=== PATIENT | male | born 1935 | race African-American/Black ===

== ENCOUNTER 2019-08-31 10:22 | Emergency (ER) | payer MEDICARE, SELFPAY ==
[2019-08-31] VITALS (7 sets, daily range): BP systolic 123–163; BP diastolic 65–98; PULSE 78–107; RESP 18–26; TEMP 37.4–37.6; O2SAT 93–97
--- NOTE | ~2019-08-31 | XR_ITS ---
EXAMINATION: XR chest 2V EXAM DATE: 08/31/2019 11:22 INDICATION: Cough and shortness of breath. TECHNIQUE: Frontal and lateral projections of the chest obtained and reviewed. Comparison is made to prior examination from 06/21/2018. FINDINGS: There is aortic arterial sclerosis. The lungs are clear. There are no pleural effusions. The cardiomediastinal silhouette is within normal limits. There is no pneumothorax suspected. The bones and soft tissues are unremarkable. Patient has diffuse idiopathic skeletal hyperostosis (DISH). There is mild hyperinflation. Accounting for differences in technique, there is no significant inte rval change. IMPRESSION: No acute cardiopulmonary findings. Reviewed, dictated and finalized at location B. R COACH DRIVER
--- NOTE | 2019-08-31 10:50 | ED.URI ---
HPI - URI/Sore Throat General Chief Complaint: Upper Respiratory Infection Stated Complaint: I think i have the flu Time Seen by Provider: 08/31/19 10:48 Source: patient and RN notes reviewed Mode of arrival: ambulatory Limitations: no limitations History of Present Illness HPI Narrative: Pt is a 83 y/o male who presents to the ED with c/o cold symptoms starting several days ago. He notes that he has developed a cough, chest soreness, nausea, and one episode of emesis over the past several days. Pt states that his cough became aggravated last night. He currently denies any fever or chills. MD elicited complaint: other (Cold Symptoms) Pertinent past history: pneumonia Onset (ago): day(s) (several) Associated symptoms: cough, nausea, vomiting and other (chest soreness) Related Data Home Medications Medication Instructions Recorded Confirmed albuterol sulfate 1.25 mg/3 mL 1.25 mg INHALATION Q4-6H PRN 06/16/19 solution for nebulization esomeprazole magnesium 40 mg 40 mg PO DAILY 06/16/19 capsule,delayed release gabapentin 300 mg capsule 300 mg PO TID 06/16/19 metoprolol succinate 25 mg 25 mg PO DAILY 06/16/19 tablet,extended release 24 hr Allergies Allergy/AdvReac Type Severity Reaction Status Date / Time No Known Allergies Allergy Verified 08/31/19 11:34 Review of Systems Review of Systems: All systems reviewed & are unremarkable except as noted in HPI and below Constitutional: Constitutional: Denies chills and Denies fever(s) Respiratory: Respiratory: Reports cough and Reports other (chest soreness) Gastrointestinal: Gastrointestinal: Reports nausea and Reports vomiting PMFSH Past Medical History Medical History Arthritis Asthma Back pain CAP (community acquired pneumonia) Cataracts, bilateral COPD (chronic obstructive pulmonary disease) Foot fracture GERD (gastroesophageal reflux disease) Gout History of hypertension Hyponatremia Inguinal hernia Surgical History Surgical History History of inguinal hernia repair History of total hip replacement rt hip Social History Social History Smoking status: Former smoker Tobacco type: cigarettes Second hand tobacco smoke exposure: No Alcohol intake: current Substance use: former Substance use type: marijuana Additional living arrangements comments: Daughter and grandson live at patients house. Comments PCP is Dr. Jacob. Exam Narrative: Exam Narrative: APPEARANCE: No acute distress, nontoxic, resting in bed EYES: EOMI HEENT: Normocephalic, atraumatic, TMs clear bilaterally, bilateral turbinates boggy, mild erythema no exudate posterior pharynx RESPIRATORY: No respiratory distress mild wheezing upper lung collazo, no rhonchi or rales CARDIOVASCULAR: Regular rate and rhythm without murmurs rubs or gallops. ABDOMINAL: Soft, nontender, nondistended, no rebound or guarding MUSCULOSKELETAl: Moves all extremities. No clubbing, cyanosis or edema. NEURO: Awake and alert. Following commands, speech normal, no focal deficits SKIN:: Warm, dry. No rashes lesions or abrasions PSYCHIATRIC: Normal affect/mood, Course Course Emergency Course: Patient given breathing treatment in ED. Following breathing treatments repeat lung exam clear to all station bilaterally Discussed with Dr. Jacob presentation work-up. Agrees with plan for discharge at this time. Request patient start on Z-Alireza Discussed with patient results of workup and diagnosis. Discussed need for follow-up with primary care, proper use of medication, and reasons to return to the emergency department. Patient understands and agrees to current treatment plan Vital Signs Vital signs: Vital Signs Temperature 99.3 F 08/31/19 10:44 Pulse Rate 97 08/31/19 10:44 Respiratory Rate 20 08/31/19 10:44 Blood Pressure 123/65 08/31/19
[2019-08-31] MEDS: ALBUTEROL SULFATE NEB 2.5 MG/0.5 ML INH 5 MG INHALATION ×2 (11:04→11:47)
[2019-08-31] MEDS: IPRATROPIUM BR 0.02% INH SOLN 0.5 MG/2.5 ML VIAL INHALATION ×2 (11:04→11:47)
[2019-08-31] MEDS: predniSONE 20 MG TABLET 60 MG PO (12:05)
== END 2019-08-31 12:21 | disposition home or self-care (01) ==
PROVIDERS: Emergency Provider Emergency Medicine; PCP Family Medicine
DX: J44.9 Chronic obstructive pulmonary disease, unspecified (principal); Z87.891 Personal history of nicotine dependence; M19.90 Unspecified osteoarthritis, unspecified site; J45.909 Unspecified asthma, uncomplicated; H26.9 Unspecified cataract; K21.9 Gastro-esophageal reflux disease without esophagitis; M10.9 Gout, unspecified; I10 Essential (primary) hypertension; Z96.641 Presence of right artificial hip joint
CPT/HCPCS: 71046; 87804; 94640; 99283; J7512

== ENCOUNTER 2020-03-22 19:36 | Emergency (ER) | payer MEDICARE, SELFPAY ==
[2020-03-22 19:31] VITALS: BP 137/70; PULSE 69; RESP 17; TEMP 36.3; O2SAT 95
[2020-03-22 19:37] VITALS: O2SAT 98
[2020-03-22 19:39] VITALS: PULSE 64
--- NOTE | 2020-03-22 19:41 | ED.SEIZURE ---
HPI - Seizure General Chief Complaint: Seizure Stated Complaint: seizure like activity Time Seen by Provider: 03/22/20 19:40 History of Present Illness HPI Narrative: He was eating with family when he became light headed. He remembers telling them that he was not feeling well and he was going home. He then lost consciousness for about 15 seconds. They lowered him to the floor. He denies fall or injury. No chest pain, palpitations. He reports having 2 bratwurst and 2 beers, which he says did not go down well prior to this episode. Related Data Home Medications Medication Instructions Recorded Confirmed esomeprazole magnesium 40 mg 40 mg PO DAILY 06/16/19 capsule,delayed release gabapentin 300 mg capsule 300 mg PO TID 06/16/19 Allergies Allergy/AdvReac Type Severity Reaction Status Date / Time No Known Allergies Allergy Verified 03/22/20 19:46 Review of Systems Review of Systems: All systems reviewed & are unremarkable except as noted in HPI and below Constitutional: Constitutional: Denies chills, Denies fever(s) and Denies weakness Cardiovascular: Cardiovascular: Denies chest pain and Denies rapid heart rate Respiratory: Respiratory: Denies dyspnea Gastrointestinal: Gastrointestinal: Denies abdominal pain, Reports nausea and Denies vomiting Genitourinary: Genitourinary: Denies dysuria Musculoskeletal: Musculoskeletal: Denies back pain Neurologic: Denies dizziness, Reports syncope, Denies headache(s), Denies numbness and Denies weakness PMFSH Past Medical History Medical History Arthritis Asthma Back pain CAP (community acquired pneumonia) Cataracts, bilateral COPD (chronic obstructive pulmonary disease) Foot fracture GERD (gastroesophageal reflux disease) Gout History of hypertension Hyponatremia Inguinal hernia Surgical History Surgical History History of inguinal hernia repair History of total hip replacement rt hip Family History Family History Mother Asthma Other Family history of arthritis Family history of malignant neoplasm of cervix Social History Social History Smoking status: Former smoker Tobacco type: cigarettes Second hand tobacco smoke exposure: No Alcohol intake: current Substance use: former Substance use type: marijuana Additional living arrangements comments: Daughter and grandson live at patients house. Exam Const: General: healthy appearing, no acute distress and alert Orientation/consciousness: patient oriented x3 HENMT: Head: normal to inspection Neck: Neck: normal visual inspection and no lymphadenopathy Chest: Chest palpation & inspection: no tenderness Resp: Effort & Inspection: normal respiratory effort Auscultation: clear to auscultation bilaterally, no rales, no rhonchi and no wheezes Cardio: Jugular venous distension: no JVD Rate: regular rate Rhythm: regular rhythm Heart sounds: no murmurs GI: Inspection: non-distended GI Palp: Yes Soft to palpation and No Tenderness to palpation present (GI) Skin: General skin exam: normal color Neuro: General: patient oriented x3 and moves all extremities Speech: normal speech Extrem: General: no edema Psych: Appearance: well kempt Affect: normal affect Course Vital Signs Vital signs: Vital Signs Temperature 36.3 C L 03/22/20 19:31 Pulse Rate 69 03/22/20 19:31 Respiratory Rate 17 03/22/20 19:31 Blood Pressure 137/70 03/22/20 19:31 Pulse Oximetry 95 03/22/20 19:31 Temperature 36.3 C L 03/22/20 19:31 Pulse Rate 78 03/22/20 22:00 Respiratory Rate 16 03/22/20 22:00 Blood Pressure 154/59 H 03/22/20 22:00 Pulse Oximetry 97 03/22/20 22:00 MDM - Seizure MDM Narrative Medical decision making narrative: Brief
--- NOTE | 2020-03-22 20:00 | ECG_ITS ---
Measurements Intervals [place] Rate: 64 P: 62 OR: 196 QRS: 78 QRSD: 94 T: 83 QT: 425 QTc: 439 Interpretive Statements SINUS RHYTHM ST ELEVATION IN ANTEROLAT/INF LEADS- PROBABLY EARLY REPOLARIZATION BASELINE WANDER- AVR, AVL, AVF, V4-V6 BORDERLINE ECG Electronically Signed On 03-23-2020 10:05:35 CDT by Petar Garcia D.O.
[2020-03-22] MEDS: SODIUM CHLORIDE 0.9% IV 500 ML 999 ML IV CONT (20:04)
[2020-03-22 20:07] VITALS: BP 154/73; PULSE 69; RESP 17; O2SAT 99
[2020-03-22 20:33] LABS: Eosinophils Percent Auto 0.5 % (0-4.4); Hematocrit 34.3 % (42.0-52.0); Hemoglobin 11.4 g/dL (14.0-18.0); Immature Granulocyte Absolute 0.01 K/mm3 (0.00-0.031); Immature Granulocyte Percent A 0.3 % (0-0.5); Lymphocytes Absolute Auto 0.81 K/mm3 (0.9-3.2); Lymphocytes Percent Auto 21.7 % (18.3-44.2); Mean Corpuscular HGB Conc 33.2 g/dl (32-36); Mean Corpuscular Volume 87.3 fl (80-100); Mean Platelet Volume 8.3 fl (7.4-10.4); Monocytes Absolute Auto 0.5 K/mm3 (0.1-0.6); Monocytes Percent Auto 13.7 % (2.6-8.5); Neutrophils Absolute Auto 2.4 K/mm3 (1.3-6.7); Neutrophils Percent Auto 63.8 % (45.5-73.1); Platelet Count Result 172 k/mm3 (150-375); Red Blood Count 3.93 M/mm3 (4.6-6.20); White Blood Count 3.7 K/mm3 (4.5-10.0)
[2020-03-22 20:45] LABS: Alanine Aminotransferase 15 U/L (4-50); Albumin Level 3.7 g/dL (3.5-5.1); Alkaline Phosphatase 64 U/L (38-126); Anion Gap 9 mmol/L (8-16); Aspartate Amino Transferase 24 U/L (17-59); Bilirubin,Total 0.8 mg/dL (0.2-1.3); Blood Urea Nitrogen 19 mg/dL (9-20); Calcium 8.3 mg/dL (8.4-10.2); Carbon Dioxide 28 mmol/L (22-30); Chloride 91 mmol/L (98-107); Estimated CRCL calculation 46 ml/min; Estimated Glomerular Filt Rate > 60; Glucose 131 mg/dL (75-110); Potassium 3.8 mmol/L (3.4-5.0); Sodium 128 mmol/L (137-145)
[2020-03-22 21:00] VITALS: BP 165/64; PULSE 72; RESP 16; O2SAT 97
[2020-03-22 22:00] VITALS: BP 154/59; PULSE 78; RESP 16; O2SAT 97
== END 2020-03-22 22:05 | disposition home or self-care (01) ==
PROVIDERS: Emergency Provider Emergency Medicine; PCP Family Medicine
DX: R55 Syncope and collapse (principal); M19.90 Unspecified osteoarthritis, unspecified site; J44.9 Chronic obstructive pulmonary disease, unspecified; K21.9 Gastro-esophageal reflux disease without esophagitis; M10.9 Gout, unspecified; I10 Essential (primary) hypertension; Z87.891 Personal history of nicotine dependence; Z96.641 Presence of right artificial hip joint; R94.31 Abnormal electrocardiogram [ECG] [EKG]
CPT/HCPCS: 36415; 80053; 85025; 93005; 99283; J7040

== ENCOUNTER 2020-05-13 10:33 | Outpatient (CLI) | payer MEDICARE, SELFPAY ==
--- NOTE | ~2020-05-13 | XR_ITS ---
XR_[id number]_CR 05/13/2020 11:01 Indication: Cervicalgia Procedure: 3 view cervical spine Comparison: No prior studies for comparison. Findings: There is reversal of cervical lordosis. There is disc narrowing and endplate degenerative c hange at all cervical levels. No prevertebral soft tissue swelling. There is multilevel facet and unc inate hypertrophy. Lung apices are normal. No acute fracture or traumatic malalignment. Impression: 1: Severe cervical spondylosis. Reviewed, dictated and finalized at location B. Impression: 1: Severe cervical spondylosis.
== END 2020-05-13 10:34 | disposition home or self-care (01) ==
PROVIDERS: PCP Family Medicine; Visit Provider Physician Assistant
DX: M54.2 Cervicalgia (principal); M47.812 Spondylosis without myelopathy or radiculopathy, cervical region
CPT/HCPCS: 72040

== ENCOUNTER 2021-01-17 18:45 | Emergency (ER) | payer MEDICARE, SELFPAY ==
--- NOTE | ~2021-01-17 | CT_ITS ---
EXAMINATION: CT abdomen pelvis w con EXAM DATE: 01/17/2021 20:33 INDICATION: Abdominal distention bloating, symptoms 3 days. Diarrhea. TECHNIQUE: Spiral CT of the abdomen and pelvis was performed following intravenous injection of 100 m L Omnipaque 350. Axial, coronal and sagittal images of the abdomen and pelvis were reviewed. The do se-length product (DLP) for this examination was 551.53 mGy-cm. The exposure was tailored according to patient size (auto mA exposure control), and iterative reconstruction (ASIR) was used as additiona l dose reduction technique. Comparison is made to prior examination from 07/11/2019. FINDINGS: The gastric body and cardia appears to have diffusely thickened wall. Differential diagnosi s for stomach wall thickening includes gastritis, Danielle Gunter syndrome, Menetrier's disease, an d less likely lymphoma. The liver, spleen, adrenal glands and pancreas are unremarkable. Gallbladder is unremarkable. No bi liary obstruction. Portal and splenic veins are patent. Kidneys enhance symmetrically. There is no hydronephrosis. Lobular renal contours bilaterally with regions of cortical scarring. There is a 2.5 cm left renal cyst. There is moderate prostatomegaly. The bladder is unremarkable, resolution of pr eviously seen cystitis. There is no retroperitoneal or pelvic lymphadenopathy. There is moderate s cattered arteriosclerotic disease. Small left inguinal fat-containing hernia. There are no findings to suggest appendicitis. There is moderately distended colon with gas and fl uid, correlate for diarrhea. No colonic wall thickening. There is mild scattered colonic diverticulos is. There is no adjacent inflammatory change to suggest diverticulitis. No free intraperitoneal gas . The heart is normal in size. There are no pericardial or pleural effusions. Mild to moderate em physema. Basilar linear scarring. There are no osteoblastic or osteolytic lesions identified. Right hip replacement. IMPRESSION: 1. Moderately distended colon with fluid and gas, consider gastroenteritis. 2. Gastric cardia and body wall thickening, could be gastritis, Danielle Gunter syndrome, Menetrie r's disease, or less likely lymphoma. 3. Mild scattered colonic diverticulosis. 4. Moderate prostatomegaly. 5. Small left inguinal hernia. 6. Emphysema. Reviewed, dictated and finalized at location A. IMPRESSION: 1. Moderately distended colon with fluid and gas, consider gastroenteritis. 2. Gastric cardia and body wall thickening, could be gastritis, Danielle Emily son syndrome, Menetrier's disease, or less likely lymphoma. 3. Mild scattered colonic diverticulosis. 4. Moderate prostatomegaly. 5. Small left inguinal hernia. 6. Emphysema.
[2021-01-17 18:55] VITALS: BP 144/64; PULSE 77; RESP 17; TEMP 36.8; O2SAT 99
--- NOTE | 2021-01-17 19:02 | ED.ABDPAIN ---
HPI - Abdominal Pain General Chief Complaint: Abdominal Pain Stated Complaint: Abd bloated Time Seen by Provider: 01/17/21 18:51 Source: patient Mode of arrival: ambulatory Limitations: no limitations History of Present Illness HPI narrative: This is an 85 year old male who presents from home for evaluation of abdominal bloating. He states his bloating has been present for 3 days. He also reports he has not had a normal bowel movement in 3 days. He is only able to pass a small amount of water when he needs to have bowel movement. He denies abdominal pain, nausea, vomiting or fever. He normal has bowel movement every other day. He denies previous history of bowel obstruction and abdominal surgery. Related Data Allergies Allergy/AdvReac Type Severity Reaction Status Date / Time No Known Allergies Allergy Verified 01/17/21 18:57 Review of Systems Review of Systems: All systems reviewed & are unremarkable except as noted in HPI and below PMFSH Past Medical History Medical History Arthritis Asthma Back pain CAP (community acquired pneumonia) Cataracts, bilateral COPD (chronic obstructive pulmonary disease) Foot fracture GERD (gastroesophageal reflux disease) Gout History of hypertension Hyponatremia Inguinal hernia Surgical History Surgical History History of inguinal hernia repair History of total hip replacement rt hip Family History Family History Mother Asthma Other Family history of arthritis Family history of malignant neoplasm of cervix Social History Social History Smoking status: Former smoker Tobacco type: cigarettes Second hand tobacco smoke exposure: No Alcohol intake: current Substance use: former Substance use type: marijuana Additional living arrangements comments: Daughter and grandson live at patients house. Gender identity (if verbalized by the patient): Male Exam Const: General: no acute distress and alert Orientation/consciousness: patient oriented x3 Eyes: EOM: EOMs intact bilaterally Resp: Effort & Inspection: normal respiratory effort and no retractions Auscultation: clear to auscultation bilaterally Cardio: Rate: regular rate Rhythm: regular rhythm Heart sounds: no murmurs GI: Inspection: distended GI Palp: Yes Soft to palpation, No Tenderness to palpation present (GI), No Guarding due to palpation present (GI) and No Rigid due to palpation Auscultation: Hyperactive bowel sounds present Skin: General skin exam: normal color Rashes: no rashes Neuro: General: patient oriented x3, moves all extremities and CN's II-XI intact bilaterally Course Reevaluation(s) Reevaluation #1: I Spoke with patient and family about labs and CT report. He has been made aware of need to follow up with GI. He also has history of hyponatremia and he has been told to restrict his fluid intact. PATient states he drinks 6 pack beer per day. I discuss this is likely one of causing factors of his low sodium . I spoke with Dr. Leyva who is tool design draftsperson . She will follow up with patient in regards to sodium and abnormal ct findings. Date: 01/17/21 Time: 22:06 Vital Signs Vital signs: Vital Signs Temperature 98.3 F 01/17/21 18:55 Pulse Rate 77 01/17/21 18:55 Respiratory Rate 17 01/17/21 18:55 Blood Pressure 144/64 H 01/17/21 18:55 Pulse Oximetry 99 01/17/21 18:55 Temperature 98.3 F 01/17/21 18:55 Pulse Rate 89 01/17/21 23:30 Respiratory Rate 18 01/17/21 23:30 Blood Pressure 159/82 H 01/17/21 23:30 Pulse Oximetry 98 01/17/21 23:30 MDM - Abdominal Pain Medical Records Attestation: I reviewed the patient's medical records. Lab Data Attestation: I reviewed the patient's lab results. Result diagra
[2021-01-17 19:10] LABS: Eosinophils Absolute Auto 0.1 K/mm3 (0-0.3); Eosinophils Percent Auto 1.5 % (0-4.4); Hematocrit 36.5 % (42.0-52.0); Hemoglobin 12.2 g/dL (14.0-18.0); Immature Granulocyte Absolute 0.01 K/mm3 (0.00-0.031); Immature Granulocyte Percent A 0.2 % (0-0.5); Lymphocytes Percent Auto 34.3 % (18.3-44.2); Mean Corpuscular HGB Conc 33.4 g/dl (32-36); Mean Corpuscular Hemoglobin 29.3 pg (26-34); Mean Corpuscular Volume 87.7 fl (80-100); Mean Platelet Volume 8.3 fl (7.4-10.4); Monocytes Absolute Auto 0.6 K/mm3 (0.1-0.6); Monocytes Percent Auto 12.2 % (2.6-8.5); Neutrophils Absolute Auto 2.4 K/mm3 (1.3-6.7); Neutrophils Percent Auto 51.8 % (45.5-73.1); Platelet Count Result 177 k/mm3 (150-375); Red Blood Count 4.16 M/mm3 (4.6-6.20); Red Cell Distribution Width 11.9 % (11.5-14.5); White Blood Count 4.7 K/mm3 (4.5-10.0)
[2021-01-17 19:22] LABS: Alanine Aminotransferase 12 U/L (4-50); Albumin Level 4.4 g/dL (3.5-5.1); Alkaline Phosphatase 73 U/L (38-126); Anion Gap 9 mmol/L (8-16); Aspartate Amino Transferase 29 U/L (17-59); Bilirubin,Total 0.8 mg/dL (0.2-1.3); Blood Urea Nitrogen 17 mg/dL (9-20); Calcium 9.1 mg/dL (8.4-10.2); Carbon Dioxide 23 mmol/L (22-30); Chloride 94 mmol/L (98-107); Estimated Glomerular Filt Rate > 60; Glucose 95 mg/dL (75-110); Lipase 68 U/L (23-300); Potassium 4.2 mmol/L (3.4-5.0); Sodium 126 mmol/L (137-145)
[2021-01-17 19:47] LABS: Add Urine Microscopic? YES; Appearance Urine Clear (Clear); Bilirubin Urine Negative (Negative); Blood Urine Negative (Negative); Color Urine Straw (Yellow); Glucose Urine UA Negative (Negative); Ketones Urine Negative (Negative); Leukocyte Esterase Ur 1+ LEU/UL (Negative); Mucus Urine Rare /lpf; Nitrate Urine Negative (Negative); Protein Urine Negative (Negative); RBC Urine 0-2 /hpf (0-2); Specific Grav Ur 1.006 (1.001-1.035); Squamous Epithelial Cell Urine Rare /hpf (Few); Urobilinogen Urine Negative mg/dL (<2.0)
[2021-01-17 23:30] VITALS: BP 159/82; PULSE 89; RESP 18; O2SAT 98
== END 2021-01-17 23:30 | disposition home or self-care (01) ==
PROVIDERS: Emergency Provider General Practice; PCP Physician Assistant
DX: E87.1 Hypo-osmolality and hyponatremia (principal); R19.7 Diarrhea, unspecified; K31.89 Other diseases of stomach and duodenum; J43.9 Emphysema, unspecified; I10 Essential (primary) hypertension; M10.9 Gout, unspecified; Z87.891 Personal history of nicotine dependence
CPT/HCPCS: 36415; 74177; 80053; 81001; 83690; 85025; 87086; 87088; 99284; J7030; Q9967

== ENCOUNTER 2021-03-29 00:16 | Day surgery (SDC) | payer MEDICARE, SELFPAY ==
[2021-03-16 15:34] VITALS: BMI 22.7
[2021-03-29 07:09] VITALS: BP 131/56; PULSE 74; RESP 20; TEMP 36.3; O2SAT 98; BMI 22.3
[2021-03-29] MEDS: LACTATED RINGERS 1,000 ML 150 ML IV CONT (07:18)
--- NOTE | 2021-03-29 07:27 | WPDANESEPPF ---
Anes - Initial Pre Proc Eval Procedure: Operation Date: 03/29/21 08:00 Proposed Procedures p Esophagogastroduodenoscopy & Screening Colonoscopy - Porter Bell MD Date/Time: 03/29/21 07:27 Surgeon: Porter Bell MD Pre Op Diagnosis: GERD/Abn CT scan, Neoplasm Patient Data Age: 85 Gender: M Height: 1.93 m Weight: 83.2 kg Last Vital Signs Temp 36.3 C L 03/29/21 07:09 Pulse 74 03/29/21 07:09 Resp 20 03/29/21 07:09 BP 131/56 L 03/29/21 07:09 Pulse Ox 98 03/29/21 07:09 Allergies Allergy/AdvReac Type Severity Reaction Status Date / Time No Known Allergies Allergy Verified 03/29/21 07:07 Home Medications Medication Instructions Recorded Confirmed Type tamsulosin 0.4 mg capsule 0.4 mg PO DAILY 90 Days #90 cap 01/29/20 03/16/21 Rx albuterol sulfate 90 mcg/actuation 2 inh INHALATION Q4H PRN #6.7 g 06/14/20 03/16/21 Rx aerosol inhaler fluticasone propionate 50 1 spray INTRANASAL DAILY #16 g 09/15/20 03/16/21 Rx mcg/actuation nasal spray,suspension budesonide-formoterol HFA 160 2 puff INHALATION Q12H #10.2 gm 10/17/20 03/16/21 Rx mcg-4.5 mcg/actuation aerosol inhaler metoprolol succinate 25 mg 25 mg PO DAILY #90 tablet 10/20/20 03/16/21 Rx tablet,extended release 24 hr amlodipine 10 mg tablet 10 mg PO DAILY #90 tablet 11/22/20 03/16/21 Rx pantoprazole 40 mg tablet,delayed 40 mg PO QAM #30 tablet 02/07/21 03/16/21 Rx release pregabalin 50 mg capsule 50 mg PO QHS #30 cap 02/07/21 03/16/21 Rx thiamine HCl (vitamin B1) 100 mg 100 mg PO DAILY #30 tablet 02/07/21 03/16/21 Rx tablet albuterol sulfate 1.25 mg/3 mL 1.25 mg INHALATION Q6-8H PRN #75 ml 02/28/21 03/16/21 Rx solution for nebulization finasteride 5 mg tablet 5 mg PO DAILY 03/02/21 03/16/21 History Patient hx anesthesia problems: none Family hx anesthesia problems: none PMFSH Past Medical History Medical History Alcohol abuse Arthritis Asthma Back pain Bloating CAP (community acquired pneumonia) Cataracts, bilateral Colon cancer screening COPD (chronic obstructive pulmonary disease) Foot fracture GERD (gastroesophageal reflux disease) Gout History of hypertension Hypertension Hyponatremia Inguinal hernia Surgical History Surgical History History of inguinal hernia repair History of total hip replacement rt hip Family History Family History Mother Asthma Other Family history of arthritis Family history of malignant neoplasm of cervix Social History Social History Smoking packs per day: 1 Smoking cigarettes per day: 20.0 Smoking status: Former smoker Tobacco type: cigarettes Second hand tobacco smoke exposure: No Alcohol intake: current Drinks per week: 21 Substance use: former Substance use type: marijuana Last use: YRS AGO Living arrangements: with family Additional living arrangements comments: Daughter and grandson live at patients house. Gender identity (if verbalized by the patient): Male Spiritual care concerns: No Anes - Eval Final PreProcedure Day of Procedure 03/29/21 07:27 Patient weight: normal Heart: regular rate and rhythm Lungs: clear to auscultation Airway: Mallampati scale class II Neurological: alert and oriented Last oral intake: >/= 8 hours ASA classification: III Emergent: no Anesthetic plan: proceed Anesthesia type and monitoring: general GIVS and standard monitoring Informed Consent: The patient's anesthetic plan and its attendant risks and benefits were discussed with the patient/family/POA. Questions were solicited and answers provided to the satisfaction of the patient/family/POA.
--- NOTE | 2021-03-29 07:57 | WPDHPUPDATE1 ---
History and Physical Update Update Date/Time: 03/29/21 07:57 History and Physical has been reviewed, including an updated exam of the patient. There are NO changes in the patient's condition. Risks, benefits, and alternatives have been discussed and questions answered. Patient agrees to proceed with procedure.
--- NOTE | 2021-03-29 08:16 | SUR.OPER ---
egd ended 810- colon began 815
[2021-03-29 08:41] VITALS: BP 112/60; PULSE 64; RESP 16; O2SAT 98
[2021-03-29 08:51] VITALS: BP 136/63; PULSE 65; RESP 16; O2SAT 98
[2021-03-29 09:01] VITALS: BP 138/73; PULSE 64; RESP 16; O2SAT 98
== END 2021-03-29 09:22 | disposition home or self-care (01) ==
PROVIDERS: PCP Family Medicine; Visit Provider Internal Medicine Gastroenterology
PROC: 0DJ08ZZ Inspection of Upper Intestinal Tract, Via Natural or Artificial Opening Endoscopic (ICD-10-PCS; CPT 43235; principal; 2021-03-29 08:00)
DX: Z12.11 Encounter for screening for malignant neoplasm of colon (principal); D12.0 Benign neoplasm of cecum; K57.30 Diverticulosis of large intestine without perforation or abscess without bleeding; K64.8 Other hemorrhoids; R14.0 Abdominal distension (gaseous); K21.9 Gastro-esophageal reflux disease without esophagitis; K44.9 Diaphragmatic hernia without obstruction or gangrene; J44.9 Chronic obstructive pulmonary disease, unspecified; M10.9 Gout, unspecified; I10 Essential (primary) hypertension; Z87.891 Personal history of nicotine dependence; Z79.51 Long term (current) use of inhaled steroids
CPT/HCPCS: 45385; 45381; 43239; 88305; J2704; J7120

== ENCOUNTER 2021-05-05 08:33 | Outpatient (CLI) | payer MEDICARE, SELFPAY ==
--- NOTE | ~2021-05-05 | XR_ITS ---
XR chest 2V DATE: 05/05/2021 09:00 INDICATION: Chronic obstructive pulmonary disease TECHNIQUE: PA and lateral views COMPARISON: 08/31/2019 2 view chest FINDINGS: Normal heart size. Aortic arch calcification. No hilar or mediastinal enlargement. Moderate bilateral hyperinflation, consistent with clinical history of COPD. Mild atelectasis is sugg ested at the lung bases. Diffuse osteopenia. IMPRESSION: COPD Mild atelectasis at the lung bases Aortic calcification Diffuse osteopenia Reviewed, dictated and finalized at location A.
== END 2021-05-05 08:34 | disposition home or self-care (01) ==
LOC: ANHIMG 08:44
PROVIDERS: PCP Family Medicine; Visit Provider Family Medicine
DX: J44.1 Chronic obstructive pulmonary disease with (acute) exacerbation (principal); J98.11 Atelectasis; I70.0 Atherosclerosis of aorta; M85.88 Other specified disorders of bone density and structure, other site
CPT/HCPCS: 71046

== ENCOUNTER 2021-09-18 10:04 | Outpatient (CLI) | payer MEDICARE, SELFPAY ==
[2021-09-18 10:30] VITALS: PULSE 78; O2SAT 92
[2021-09-18 10:32] VITALS: PULSE 70; O2SAT 87
[2021-09-18 10:34] VITALS: PULSE 74; O2SAT 89
[2021-09-18 10:36] VITALS: PULSE 75; O2SAT 94
--- NOTE | 2021-09-18 11:48 | HOMEO2EVAL ---
Evaluation was performed at [facility] Home Oxygen Evaluation RC: Home Oxygen (O2) Evaluation Start: 09/18/21 11:46 Freq: Status: Active Protocol: RPE Activity Type Activity Date Activity User E-Sign Co-Sign Detail Recorded Client Recorded Date Recorded By Document 09/18/21 10:30 KRM [id number] 09/18/21 11:48 KRM Document 09/18/21 10:32 KRM [id number] 09/18/21 11:48 KRM Document 09/18/21 10:34 KRM [id number] 09/18/21 11:48 KRM Document 09/18/21 10:36 KRM [id number] 09/18/21 11:48 KRM 09/18/21 09/18/21 09/18/21 10:30 10:32 10:34 Home O2 Evaluation Test Phase Resting Exercise Exercise Oxygen Delivery Room Air Room Air Nasal Cannula Oxygen Flow Rate (L/min) 1 Pulse Oximetry (90-100 %) 92 87 L 89 L Pulse Rate (60-100 beats/min) 78 70 74 Activity Tolerance Good Good Ambulation Distance (feet) Ambulation Distance (meters) Home Oxygen Evaluation Comments Treatment Charges 09/18/21 10:36 Home O2 Evaluation Test Phase Exercise Oxygen Delivery Nasal Cannula Oxygen Flow Rate (L/min) 2 Pulse Oximetry (90-100 %) 94 Pulse Rate (60-100 beats/min) 75 Activity Tolerance Good Ambulation Distance (feet) 500 Ambulation Distance (meters) 152.39 Home Oxygen Evaluation Comments 2LPM WITH ACTIVITY. PT. IS REQUESTING POC ON SETUP. Treatment Charges O2 Evaluation - Outpatient
--- NOTE | 2021-09-18 13:20 | WPDPFTINT ---
PFT Procedure Performed PFT Procedure Performed Spirometry with Pre/Post Bronchodilator Plethysmography (Lung Vol) Diffusing Cap (DLCO) Flow Vol Loop PFT Interpretation Lung volumes were measured with the body plethysmography method. Lung volumes are unremarkable. Spirometry showed diminished expiratory flow rates and a diminished FEV1 to FVC ratio 53%, indicative of obstructive airway disease. Following administration of a bronchodilator there was no significant increase in expiratory flow rates. Lung diffusion capacity is moderately reduced at 62% predicted. The flow volume loop is consistent with obstructive airway disease. Impression: Moderate obstructive airway disease with no response to bronchodilators on this testing. Moderately reduced lung diffusion capacity.
== END 2021-09-18 10:05 | disposition home or self-care (01) ==
LOC: ANHPFT 10:06
PROVIDERS: PCP Family Medicine; Visit Provider Internal Medicine Pulmonary Disease
DX: J44.9 Chronic obstructive pulmonary disease, unspecified (principal)
CPT/HCPCS: 94060; 94618; 94726; 94729

== ENCOUNTER → 2021-10-18 02:51 | Outpatient (CLI) | payer MEDICARE, SELFPAY ==
[2021-10-18 12:58] LABS: Influenza A QL RT-PCR Negative (Negative); Influenza B QL RT-PCR Negative (Negative); SARS-CoV-2 RNA PCR Negative
== END ==
PROVIDERS: PCP Family Medicine; Visit Provider Family Medicine
DX: R05.9 Cough, unspecified (principal); R09.89 Other specified symptoms and signs involving the circulatory and respiratory systems; Z20.822 Contact with and (suspected) exposure to COVID-19
CPT/HCPCS: 87502; C9803; U0003; U0005

== ENCOUNTER 2022-02-12 13:02 | Outpatient (RCR) | payer MEDICARE, SELFPAY ==
[2022-02-12] MEDS: FAMOTIDINE 20 MG TABLET PO (13:38)
[2022-02-12] MEDS: diphenhydrAMINE HCl CAP 25 MG CAPSULE PO (13:38)
[2022-02-12 13:44] VITALS: BP 125/76; PULSE 70; TEMP 36; O2SAT 99
[2022-02-12] MEDS: BEBTELOVIMAB 175 MG/2 ML VIAL IV PUSH (13:57)
[2022-02-12 14:37] VITALS: BP 164/70; PULSE 59; O2SAT 100
== END 2022-02-12 16:00 ==
LOC: AMCINF 13:02
PROVIDERS: PCP Family Medicine; Referring Provider Family Medicine; Visit Provider Internal Medicine Hematology & Oncology
DX: U07.1 COVID-19 (principal); J44.9 Chronic obstructive pulmonary disease, unspecified
CPT/HCPCS: A9270; M0222; Q0222

== ENCOUNTER 2023-03-21 11:03 | Outpatient (CLI) | payer MEDICARE, SELFPAY ==
[2023-03-21 12:40] LABS: Influenza A QL RT-PCR Negative (Negative); Influenza B QL RT-PCR Negative (Negative); RSV RNA, RT-PCR Negative (Negative); SARS-CoV-2 RNA PCR Positive (Negative)
== END 2023-03-21 11:04 | disposition home or self-care (01) ==
LOC: ANHLAB 11:04
PROVIDERS: PCP Family Medicine; Visit Provider Physician Assistant
DX: U07.1 COVID-19 (principal)
CPT/HCPCS: 87637

== ENCOUNTER 2023-04-19 10:30 | Outpatient (CLI) | payer MEDICARE, SELFPAY ==
--- NOTE | ~2023-04-19 | XR_ITS ---
XR chest 2V 04/19/2023 10:58 Indication: Dyspnea. Recent Covid. Procedure: 2 view chest Comparison: Comparison to multiple prior studies sequentially, with oldest reviewed study dated 11/29. Findings: Heart size is normal. No focal air space disease, pulmonary edema, pleural effusion or susp ected pneumothorax. Impression: 1: No acute cardiopulmonary disease. Reviewed, dictated and finalized at location B. Impression: 1: No acute cardiopulmonary disease.
--- NOTE | ~2023-04-19 | XR_ITS ---
XR_CERV2-3V_CR 04/19/2023 10:58 Indication: Neck pain Procedure: 3 views cervical spine Comparison: 05/13/2020 Findings: C7 and T1 are not well visualized on lateral view. There is reversal of cervical lordosis. There are severe degenerative disc disease at all visualized cervical spine levels. There is multilev el facet and uncinate hypertrophy. Lung apices are normal. Odontoid process is unremarkable. No preve rtebral soft tissue swelling. Impression: 1: Severe cervical spondylosis. Limited study. Reviewed, dictated and finalized at location B. Impression: 1: Severe cervical spondylosis. Limited study.
== END 2023-04-19 10:31 | disposition home or self-care (01) ==
PROVIDERS: PCP Family Medicine; Visit Provider Physician Assistant Medical
DX: M54.2 Cervicalgia (principal); M43.02 Spondylolysis, cervical region; R06.00 Dyspnea, unspecified
CPT/HCPCS: 71046; 72040

== ENCOUNTER 2023-07-08 10:56 | Outpatient (CLI) | payer MEDICARE, SELFPAY ==
[2023-07-08 12:15] LABS: Influenza A QL RT-PCR Negative (Negative); Influenza B QL RT-PCR Negative (Negative); RSV RNA, RT-PCR Negative (Negative); SARS-CoV-2 RNA PCR Positive (Negative)
== END 2023-07-08 10:57 | disposition home or self-care (01) ==
LOC: ANHLAB 10:59
PROVIDERS: PCP Family Medicine; Visit Provider Physician Assistant
DX: J43.1 Panlobular emphysema (principal); Z20.822 Contact with and (suspected) exposure to COVID-19
CPT/HCPCS: 87637

== ENCOUNTER 2023-08-07 12:29 | Outpatient (CLI) | payer MEDICARE, SELFPAY ==
[2023-08-07 12:30] VITALS: PULSE 81; O2SAT 95
[2023-08-07 12:35] VITALS: PULSE 83; O2SAT 87
[2023-08-07 12:40] VITALS: PULSE 82; O2SAT 87
[2023-08-07 12:45] VITALS: PULSE 81; O2SAT 92
[2023-08-07 12:55] VITALS: PULSE 82; O2SAT 94
--- NOTE | 2023-08-07 13:01 | HOMEO2EVAL ---
Evaluation was performed at [facility] Home Oxygen Evaluation RC: Home Oxygen (O2) Evaluation Start: 08/07/23 12:57 Freq: Status: Active Protocol: RPE Activity Type Activity Date Activity User E-sign Co-sign Detail Recorded Client Recorded Date Recorded By Document 08/07/23 12:30 PK [email or web address] 08/07/23 13:01 PKH Document 08/07/23 12:35 PK [email or web address] 08/07/23 13:01 PKH Document 08/07/23 12:40 PK [email or web address] 08/07/23 13:01 PK Document 08/07/23 12:45 [facility] [email or web address] 08/07/23 13:01 [facility] Document 08/07/23 12:55 [facility] [email or web address] 08/07/23 13:01 [facility] 08/07/23 08/07/23 08/07/23 12:30 12:35 12:40 Home O2 Evaluation [Oxygen] -Test Phase Resting Exercise Exercise -Oxygen Delivery Room Air Room Air Nasal Cannula -Oxygen Flow Rate (L/min) 1 [Pulse Oximetry] -Pulse Oximetry (90-100 %) 95 87 L 87 L [Pulse Rate] -Pulse Rate (60-100 beats/min) 81 83 82 [Charges] -Evaluation Charges O2 Evaluation by Pulmonary 08/07/23 08/07/23 12:45 12:55 Home O2 Evaluation [Oxygen] -Test Phase Exercise Resting -Oxygen Delivery Nasal Cannula Room Air -Oxygen Flow Rate (L/min) 2 [Pulse Oximetry] -Pulse Oximetry (90-100 %) 92 94 [Pulse Rate] -Pulse Rate (60-100 beats/min) 81 82 [Charges] -Evaluation Charges
== END 2023-08-07 12:30 | disposition home or self-care (01) ==
LOC: ANHPFT 12:32
PROVIDERS: PCP Family Medicine; Visit Provider Physician Assistant
DX: J96.10 Chronic respiratory failure, unspecified whether with hypoxia or hypercapnia (principal); J44.9 Chronic obstructive pulmonary disease, unspecified
CPT/HCPCS: 94618

== ENCOUNTER 2023-08-28 14:22 | Outpatient (CLI) | payer MEDICARE, SELFPAY ==
--- NOTE | ~2023-08-28 | XR_ITS ---
EXAMINATION: XR hip BI 2V w AP pelvis DATE: 08/28/2023 14:52 INDICATION: Pain in unspecified hip. TECHNIQUE: An anteroposterior view of the pelvis and 2 views of each hip were obtained. COMPARISON: Right hip radiographs 04/01/2019 FINDINGS: There is a total right hip arthroplasty in near-anatomic alignment. There is a cable around the proximal right femur. No fracture. No periprosthetic lucency to suggest loosening or infection. There is heterotopic ossification around right hip. 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 There is severe lumbar spondylosis. IMPRESSION: 1. Total right hip arthroplasty in near-anatomic alignment. 2. Moderate left hip osteoarthritis. Reviewed, dictated and finalized at location E. [employer]
== END 2023-08-28 14:23 ==
PROVIDERS: PCP Physician Assistant; Visit Provider Physician Assistant
DX: M16.12 Unilateral primary osteoarthritis, left hip (principal); Z96.641 Presence of right artificial hip joint
CPT/HCPCS: 73521

== ENCOUNTER 2023-09-09 12:18 | Emergency (ER) | payer MEDICARE, SELFPAY ==
--- NOTE | ~2023-09-09 | XR_ITS ---
Clinical Indication: Cough PA and lateral views of the chest: Comparison: 04/19/2023 Findings: The lungs are clear, without evidence of focal consolidation or pleural effusion. Cardiome diastinal silhouette is within normal limits. Bones and soft tissues are unremarkable. Impression: Clear lungs. Reviewed, dictated and finalized at location . [employer] Impression: Clear lungs.
[2023-09-09 12:30] VITALS: BP 152/56; PULSE 84; RESP 20; TEMP 36.7; O2SAT 94
[2023-09-09 13:20] LABS: Influenza A QL RT-PCR Negative (Negative); Influenza B QL RT-PCR Negative (Negative); RSV RNA, RT-PCR Positive (Negative); SARS-CoV-2 RNA PCR Negative (Negative)
--- NOTE | 2023-09-09 14:24 | ED.GENADULT ---
HPI - General Adult General Chief complaint: Upper Respiratory Infection <Minerva Cespedes November,N - Last Filed: 09/09/23 14:29> Stated complaint: cough <Minerva Cespedes November, - Last Filed: 09/09/23 14:29> Time Seen by Provider: 09/09/23 14:35 <Minerva Cespedes November,N - Last Filed: 09/09/23 14:29> History of Present Illness HPI narrative: Focused HPI: 1423 GENERAL: Well-appearing, well-nourished, and in no acute distress. HEAD: Normocephalic, atraumatic. CHEST: Clear to auscultation. ?No respiratory distress. HEART: Regular rate and rhythm.? NEURO: ?Alert and oriented x3. Patient screened in triage and initial orders placed.? ?Additional care and disposition to be based upon?diagnostic testing and treatment. Impressions Chest X-Ray 09/09/23 13:04 Impression: Clear lungs. <Minerva Cespedes November, - Last Filed: 09/09/23 14:29> Related Data Home medications: Home Medications Medication Instructions Recorded Confirmed finasteride 5 mg tablet 5 mg PO DAILY 03/02/21 08/28/23 <Minerva Cespedes November,N - Last Filed: 09/09/23 14:29> Allergies/adverse reactions: Allergies Allergy/AdvReac Type Severity Reaction Status Date / Time No Known Allergies Allergy Verified 09/09/23 12:19 <Minerva Cespedes November, - Last Filed: 09/09/23 14:29> Review of Systems Constitutional: Constitutional: Denies chills, Reports fatigue and Denies fever(s) <Eladio Carrizales MD - Last Filed: 09/09/23 15:09> Cardiovascular: Cardiovascular: Denies chest pain, Denies rapid heart rate and Denies radiating jaw, neck or arm pain <Eladio Carrizales MD - Last Filed: 09/09/23 15:09> Respiratory: Respiratory: Reports cough, Denies dyspnea and Denies wheezing <Eladio Carrizales MD - Last Filed: 09/09/23 15:09> PMFSH Past Medical History Medical History: Medical History Alcohol abuse Arthritis Asthma Back pain Bloating CAP (community acquired pneumonia) Cataracts, bilateral Colon cancer screening COPD (chronic obstructive pulmonary disease) Foot fracture GERD (gastroesophageal reflux disease) Gout History of hypertension Hypertension Hyponatremia Inguinal hernia Pain in both knees <Minerva Cespedes November, Last Filed: 09/09/23 14:29> Surgical History Surgical History: Surgical History History of inguinal hernia repair History of total hip replacement rt hip <Minerva Cespedes November, - Last Filed: 09/09/23 14:29> Family History Family History: Family History Mother Asthma Other Family history of arthritis Family history of malignant neoplasm of cervix <Minerva Cespedes November, Last Filed: 09/09/23 14:29> Social History Social History: Social History Smoking packs per day: 1 Smoking cigarettes per day: 20.0 Years smoked: 30 Smoking pack-years: 30.00 Smoking status: Former smoker Tobacco type: cigarettes Second hand tobacco smoke exposure: No Smoking end date: 12/31/97 Alcohol intake: current Drinks per week: 21 Substance use: former Substance use type: marijuana Last use: YRS AGO Living arrangements: with family Additional living arrangements comments: Daughter and grandson live at patients house. Gender identity (if verbalized by the patient): Male Spiritual care concerns: No <Minerva Cespedes November, Last Filed: 09/09/23 14:29> Exam Narrative: GENERAL: Well-appearing, well-nourished, and in no acute distress. HEAD: Normocephalic, atraumatic. ENT: Mucous membranes moist. CHEST: faint basilar rhonchi. No respiratory distress. HEART: Regular rate and rhythm. Normal peripheral pulses. EXTREMITIES: Normal range of motion. No edema. SKIN: Warm, dry, no rash. NEURO: Alert and oriented x3. PSYCH: Normal mood and affect. Mitzi Reed
[2023-09-09 15:32] VITALS: BP 142/85; PULSE 85; RESP 20; TEMP 36.8; O2SAT 93
== END 2023-09-09 15:33 | disposition home or self-care (01) ==
PROVIDERS: Emergency Provider Emergency Medicine; PCP Physician Assistant
DX: J20.5 Acute bronchitis due to respiratory syncytial virus (principal); Z20.822 Contact with and (suspected) exposure to COVID-19; I10 Essential (primary) hypertension; J44.9 Chronic obstructive pulmonary disease, unspecified; K21.9 Gastro-esophageal reflux disease without esophagitis; M19.90 Unspecified osteoarthritis, unspecified site; M10.9 Gout, unspecified; Z96.641 Presence of right artificial hip joint; Z87.891 Personal history of nicotine dependence
CPT/HCPCS: 71046; 87637; 99283

== ENCOUNTER 2023-09-23 11:53 | Outpatient (CLI) | payer MEDICARE, SELFPAY ==
--- NOTE | ~2023-09-23 | XR_ITS ---
EXAMINATION: XR abdomen obstructive series DATE: 09/23/2023 12:18 INDICATION: Gaseous abdominal distention TECHNIQUE: Upright and supine views of the abdomen were obtained. COMPARISON: None. FINDINGS: There are no dilated loops of bowel. No free intraperitoneal gas is identified. The visuali zed lung bases are clear. There are changes of right total hip arthroplasty. There is moderate osteoa rthritis of the left hip. IMPRESSION: 1. Nonobstructive bowel gas pattern. Reviewed, dictated and finalized at location B. HOOKER
== END 2023-09-23 11:54 | disposition home or self-care (01) ==
PROVIDERS: PCP Family Medicine; Visit Provider Physician Assistant
DX: R14.0 Abdominal distension (gaseous) (principal)
CPT/HCPCS: 74019

== ENCOUNTER 2023-10-22 15:12 | Emergency (ER) | payer MEDICARE, SELFPAY ==
[2023-10-22] VITALS (22 sets, daily range): BP systolic 139–165; BP diastolic 59–73; PULSE 61–85; RESP 15–23; TEMP 36.6–36.7; O2SAT 96–100
--- NOTE | ~2023-10-22 | XR_ITS ---
XR chest 2V DATE: 10/22/2023 15:46 INDICATION: Pain TECHNIQUE: PA and lateral views COMPARISON: 04/19/2023 2 view chest FINDINGS: Normal heart size. Aortic calcification. No hilar or mediastinal enlargement. No pulmonary infiltrate or consolidation, pleural effusion or pulmonary vascular congestion or pneumo thorax is detected. IMPRESSION: No active cardiopulmonary disease Reviewed, dictated and finalized at location B.
[2023-10-22 16:06] LABS: Influenza A QL RT-PCR Negative (Negative); Influenza B QL RT-PCR Negative (Negative); RSV RNA, RT-PCR Negative (Negative); SARS-CoV-2 RNA PCR Negative (Negative)
--- NOTE | 2023-10-22 16:12 | ECG_ITS ---
Measurements Intervals [place] Rate: 63 P: 48 PA: 187 QRS: 68 QRSD: 82 T: 69 QT: 397 QTc: 409 Interpretive Statements SINUS RHYTHM VOLTAGE CRITERIA FOR LVH [MEETS CRITERIA IN ONE OF: R(aVL), S(V1), R(V5), R(V5/V6)+S(V1)] COMPARED TO ECG 03/22/2020 19:39:01 LEFT VENTRICULAR HYPERTROPHY NOW PRESENT Electronically Signed On 10-23-2023 12:19:26 CDT by Leonel Simmons M.D.
[2023-10-22 16:36] LABS: Basophils Percent Auto 0.4 % (0.2-1.2); Eosinophils Absolute Auto 0.1 K/mm3 (0-0.3); Eosinophils Percent Auto 1.4 % (0-4.4); Hematocrit 37.7 % (42.0-52.0); Hemoglobin 11.9 g/dL (14.0-18.0); Immature Granulocyte Absolute 0.02 K/mm3 (0.00-0.031); Immature Granulocyte Percent A 0.4 % (0-0.5); Lymphocytes Absolute Auto 1.66 K/mm3 (0.9-3.2); Lymphocytes Percent Auto 33.9 % (18.3-44.2); Mean Corpuscular HGB Conc 31.6 g/dl (32-36); Mean Corpuscular Hemoglobin 27.6 pg (26-34); Mean Corpuscular Volume 87.5 fl (80-100); Mean Platelet Volume 8.9 fl (7.4-10.4); Monocytes Absolute Auto 0.6 K/mm3 (0.1-0.6); Monocytes Percent Auto 12.9 % (2.6-8.5); Neutrophils Absolute Auto 2.5 K/mm3 (1.3-6.7); Platelet Count Result 203 k/mm3 (150-375); Red Blood Count 4.31 M/mm3 (4.6-6.20); Red Cell Distribution Width 13.2 % (11.5-14.5); White Blood Count 4.9 K/mm3 (4.5-10.0)
[2023-10-22 17:15] LABS: Alanine Aminotransferase 12 U/L (6-50); Albumin Level 3.8 g/dL (3.5-5.1); Alkaline Phosphatase 78 U/L (38-126); Anion Gap 4 mmol/L (4-12); Aspartate Amino Transferase 25 U/L (17-59); Bilirubin,Total 0.5 mg/dL (0.2-1.3); Blood Urea Nitrogen 17 mg/dL (9-20); Calcium 8.8 mg/dL (8.4-10.2); Carbon Dioxide 29 mmol/L (22-30); Chloride 99 mmol/L (98-107); Estimated CRCL calculation 44 ml/min; Estimated Glomerular Filt Rate > 60; Glucose 108 mg/dL (65-110); Potassium 4.4 mmol/L (3.4-5.0); Sodium 132 mmol/L (137-145)
--- NOTE | 2023-10-22 17:44 | ED.SOB ---
HPI - SOB/Dyspnea General Chief Complaint: Shortness of Breath/Dyspnea Stated Complaint: shortness of breath, COPD Time Seen by Provider: 10/22/23 17:10 Source: patient and family Mode of arrival: ambulatory Limitations: no limitations History of Present Illness HPI Narrative: This is a 87 year old male that presents to the ER for shortness of breath. Ongoing over the last 2 days. Reports tightness in his chest as well as wheezing. Reports some pain below his ribs. He has history of COPD and wears 2L NC chronically. Denies fever, cough or lower extremity edema. Related Data Home Medications Medication Instructions Recorded Confirmed finasteride 5 mg tablet 5 mg PO DAILY 03/02/21 09/18/23 Allergies Allergy/AdvReac Type Severity Reaction Status Date / Time No Known Allergies Allergy Verified 09/18/23 15:18 Review of Systems Review of Systems: CONSTITUTIONAL: Denies fever CARDIOVASCULAR: Denies chest pain, or edema. RESPIRATORY: Reports dyspnea. Denies cough All systems reviewed & are unremarkable except as noted in HPI and below PMFSH Past Medical History Medical History Alcohol abuse Arthritis Asthma Back pain Bloating CAP (community acquired pneumonia) Cataracts, bilateral Colon cancer screening COPD (chronic obstructive pulmonary disease) Foot fracture GERD (gastroesophageal reflux disease) Gout History of hypertension Hypertension Hyponatremia Inguinal hernia Pain in both knees Surgical History Surgical History History of inguinal hernia repair History of total hip replacement rt hip Family History Family History Mother Asthma Other Family history of arthritis Family history of malignant neoplasm of cervix Social History Social History Smoking packs per day: 1 Smoking cigarettes per day: 20.0 Years smoked: 30 Smoking pack-years: 30.00 Smoking status: Former smoker Tobacco type: cigarettes Second hand tobacco smoke exposure: No Smoking end date: 12/31/97 Alcohol intake: current Drinks per week: 21 Substance use: former Substance use type: marijuana Last use: YRS AGO Living arrangements: with family Additional living arrangements comments: Daughter and grandson live at patients house. Gender identity (if verbalized by the patient): Male Spiritual care concerns: No Exam Narrative: GENERAL: Elderly, well-nourished, and in no acute distress. HEAD: Normocephalic, atraumatic. EYES: EOMI. ENT: Nares clear, no rhinorrhea or epistaxis. Mucous membranes moist. Oropharynx without tonsillar hypertrophy exudate or other lesions. NECK: Supple. No adenopathy or masses. No JVD CHEST: No respiratory distress. Lung sounds diminished with expiratory wheezing. No rales or rhonchi HEART: Regular rate and rhythm. No murmur heard. Normal peripheral pulses. EXTREMITIES: Normal range of motion. No edema. SKIN: Warm, dry, no rash. NEURO: No focal deficits. Alert and oriented x3. PSYCH: Normal mood and affect Course Course Emergency Course: Patient with improvement with nebulizer treatment and steroids Vital Signs Vital signs: Vital Signs Temperature 98.0 F 10/22/23 15:18 Pulse Rate 85 10/22/23 15:18 Respiratory Rate 20 10/22/23 15:18 Blood Pressure 139/59 L 10/22/23 15:18 Pulse Oximetry 98 10/22/23 15:18 Oxygen Delivery Room Air 10/22/23 15:18 Temperature 98.0 F 10/22/23 15:18 Pulse Rate 76 10/22/23 18:17 Respiratory Rate 19 10/22/23 18:17 Blood Pressure 139/59 L 10/22/23 15:18 Pulse Oximetry 100 10/22/23 15:56 Oxygen Delivery Nasal Cannula 10/22/23 15:56 Oxygen Flow Rate 2 10/22/23 15:56 MDM - SOB/Dyspnea MDM Narrative Medical decision sukhi
[2023-10-22] MEDS: methylPREDNISolone SOD SUCC 125 MG VIAL IV PUSH (18:00)
[2023-10-22] MEDS: IPRATROPIUM 0.5 MG/ALBUTEROL SULFATE 2.5 MG AMPUL.NEB 3 ML INHALATION ×2 (18:08→19:11)
[2023-10-22 18:16] LABS: Troponin I < 0.012 ng/mL (0.000-0.034)
[2023-10-22 18:26] LABS: D Dimer 0.49 ug/mL (<0.48)
== END 2023-10-22 19:46 | disposition home or self-care (01) ==
PROVIDERS: Emergency Medicine; Emergency Provider Physician Assistant; PCP Family Medicine
DX: J44.1 Chronic obstructive pulmonary disease with (acute) exacerbation (principal); Z20.822 Contact with and (suspected) exposure to COVID-19; J96.10 Chronic respiratory failure, unspecified whether with hypoxia or hypercapnia; I10 Essential (primary) hypertension; K21.9 Gastro-esophageal reflux disease without esophagitis; M10.9 Gout, unspecified; M19.90 Unspecified osteoarthritis, unspecified site; Z96.641 Presence of right artificial hip joint; Z87.01 Personal history of pneumonia (recurrent); Z87.891 Personal history of nicotine dependence
CPT/HCPCS: 36415; 71046; 80053; 84484; 85025; 85380; 87637; 93005; 94640; 96374; 99284; J2919

== ENCOUNTER 2024-01-09 11:52 | Outpatient (CLI) | payer MEDICARE, SELFPAY ==
--- NOTE | ~2024-01-09 | XR_ITS ---
XR knee LT min 4V Ordering provider: Batool Hernandez MD History: . OSTEOARTHRITIS OF KNEES, JUDY . Comparison: September 11, 2013 FINDINGS: BONES: No acute fracture or dislocation. JOINT SPACES: Narrowing of the medial compartment. SOFT TISSUES: Vascular calcification. IMPRESSION: No acute osseous abnormality left knee. Severe osteoarthritic changes. Reviewed, dictated and finalized at location A.
--- NOTE | ~2024-01-09 | XR_ITS ---
XR knee RT min 4V Ordering provider: Batool Hernandez MD History: . OSTEOARTHRITIS OF KNEES, JUDY . Comparison: None. FINDINGS: BONES: No acute fracture or dislocation. JOINT SPACES: Slight narrowing of the medial compartment. SOFT TISSUES: Normal. Vascular calcifications. IMPRESSION: No acute osseous abnormality right knee. [id number] osteoarthritic changes. Reviewed, dictated and finalized at location A. IMPRESSION: No acute osseous abnormality right knee. [id number] osteoarthritic changes.
== END 2024-01-09 11:53 | disposition home or self-care (01) ==
PROVIDERS: PCP Family Medicine; Visit Provider Physical Medicine & Rehabilitation Pain Medicine
DX: M17.0 Bilateral primary osteoarthritis of knee (principal)
CPT/HCPCS: 73564

== ENCOUNTER 2024-02-06 06:39 | Outpatient (CLI) | payer MEDICARE, SELFPAY ==
--- NOTE | ~2024-02-06 | XR_ITS ---
EXAMINATION: XR chest 2V 02/06/2024 07:08 INDICATION: COPD. Dyspnea. PROCEDURE: 2 view chest COMPARISON: 09/09/2023 FINDINGS: The lungs are clear. The cardiomediastinal silhouette is within normal limits. There are no pleural effusions. There is no pneumothorax suspected. Prominent left cardiophrenic angle fat pa d. There is diffuse idiopathic skeletal hyperostosis (DISH) of the thoracic spine. IMPRESSION: 1: NO ACUTE CARDIOPULMONARY DISEASE. Reviewed, dictated and finalized at location B.
--- NOTE | ~2024-02-06 | MR_ITS ---
MRI of the left knee Clinical history: Pain Technique: Coronal proton density and proton density-weighted images, sagittal proton-density and T2 fat-sat images, and axial proton-density fat-saturated images were acquired. Findings: Anterior and posterior cruciate ligaments are intact. Medial collateral ligament and the la teral collateral ligament complex are intact. Popliteus tendon is intact. Lateral meniscus is intact, without evidence of tear. There is extensive complex tearing of the poste rior horn and body of the medial meniscus versus possibly prior partial meniscectomy change. There is mild chondromalacia at the central aspect of the femoral trochlea. There is diffuse grade 4 chondral lesion on both sides of the medial compartment. There is mild chondral thinning of the later al compartment. Small tricompartmental osteophytes are present. Extensor mechanism is intact. There is tendinosis versus partial thickness tearing at the insertion o f the distal quadriceps tendon at the patella. Patellar tendon intact. No significant joint effusion or Jacob's cyst. Impression: Extensive complex tearing of the posterior horn and body medial meniscus versus possibly prior partia l meniscectomy change. Correlate with any relevant surgical history. Extensive high-grade chondromalacia the medial compartment. Mild tricompartmental degenerative spurri ng. Probable partial thickness tearing versus severe tendinosis of the posterior half of the distal quadr iceps tendon at the insertion at the patella. Reviewed, dictated and finalized at [facility]. Impression: Extensive complex tearing of the posterior horn and body medial meniscus versus possibly prior partial meniscectomy change. Correlate with any relevant surgic al history. Extensive high-grade chondromalacia the medial compartment. Mild tricompartment al degenerative spurring. Probable partial thickness tearing versus severe tendinosis of the posterior alvarez lf of the distal quadriceps tendon at the insertion at the patella.
== END 2024-02-06 06:40 | disposition home or self-care (01) ==
PROVIDERS: PCP Family Medicine; Visit Provider Physical Medicine & Rehabilitation Pain Medicine
DX: R05.9 Cough, unspecified (principal); J44.9 Chronic obstructive pulmonary disease, unspecified; M25.562 Pain in left knee; S83.232A Complex tear of medial meniscus, current injury, left knee, initial encounter; M94.262 Chondromalacia, left knee
CPT/HCPCS: 71046; 73721

== ENCOUNTER 2024-05-15 10:25 | Outpatient (CLI) | payer MEDICARE, SELFPAY ==
--- NOTE | ~2024-05-15 | CT_ITS ---
EXAMINATION:CT diagnostic chest wo con DATE: 05/15/2024 11:02 INDICATION: Chronic obstructive pulmonary disease, unspecified. TECHNIQUE: Computed tomography (CT) of the chest was performed without intravenous contrast. Automate d exposure control and iterative reconstruction technique were employed. The dose-length product (DLP ) was 107.88 mGy-cm. COMPARISON: Chest CT 12/01/2017, CT abdomen and pelvis 01/07/2021 FINDINGS: There is moderate emphysema. There is mild atelectasis and scarring bilaterally. There are 3 nodules in posterior segment right upper lobe measuring up to 6 mm, new from 12/01/17. Calcified rig ht lung nodules and calcified right hilar and mediastinal lymph nodes are consistent with old granulo matous disease. No pleural effusion. The heart size is normal. There are coronary artery calcificatio ns. There is a trace pericardial effusion. There is cortical thinning of the kidneys. There is a 2.7 cm cyst in left kidney. Aortic atherosclerosis is noted. There are bridging endplate osteophytes at m ultiple levels in the spine, consistent with diffuse idiopathic skeletal hyperostosis (DISH). There i s severe cervical spondylosis. IMPRESSION: 1. Pulmonary nodules measuring up to 6 mm, probably benign. Consider noncontrast low-dose chest CT in 6-12 months. Reviewed, dictated and finalized at location A. IMPRESSION: 1. Pulmonary nodules measuring up to 6 mm, probably benign. Consider noncontras t low-dose chest CT in 6-12 months.
--- NOTE | 2024-05-15 14:08 | WPDPFTINT ---
PFT Procedure Performed PFT Procedure Performed Spirometry with Pre/Post Bronchodilator Plethysmography (Lung Vol) Diffusing Cap (DLCO) Flow Vol Loop PFT Interpretation This is a pulmonary function test with pre and post-bronchodilator spirometry, plethysmography and diffusing capacity. The test was performed and results interpreted in accordance with the 2019 and 2005 ATS/ERS Task Force guidelines respectively using the Global Lung Function Initiative-2012 reference equations. Patient demonstrated good effort and cooperation. Reproducibility criteria were met. The quality of the pre bronchodilator spirometry maneuver was Grade A and post bronchodilator spirometry maneuver was Grade A. Findings: Spirometry: There is decreased maximal expiratory airflow at all lung volumes with concave expiratory flow tracing. The contour the inspiratory flow tracing is normal. The pre bronchodilator FVC is 3.82 L, 103% predicted. The pre bronchodilator FEV1 is 1.75 L, 65% predicted. The pre bronchodilator FEV1: FVC ratio is 46%. The post bronchodilator FVC is 3.88 L, representing a 2% increase. The post bronchodilator FEV1 is 1.79 L, representing a 2% increase. The post bronchodilator FEV1: FVC ratio is 46%. Plethysmography: The total lung capacity is 8.18 L, 114% predicted. The functional residual capacity is 6.00 L, 143% predicted. The residual volume is 4.21 L, 147% predicted. The residual volume: Total lung capacity ratio is 52%. Diffusing capacity: The diffusing capacity unadjusted for hemoglobin and carboxyhemoglobin is 14.7, 60% predicted. The diffusing capacity adjusted for alveolar volume is 2.61, 84% predicted. In comparison to previous pulmonary function testing on 09/18/2021 the post bronchodilator FVC is unchanged from 3.81 L to 3.88 L. the post bronchodilator FEV1 is unchanged from 2.03 L to 1.79 L. The total lung capacity is unchanged from 6.99 L to 8.18 L. The functional residual capacity is increased from 4.87 L to 6.00 L. The residual volume is increased from 3.41 L to 4.21 L. the diffusing capacity unadjusted for hemoglobin and carboxyhemoglobin is unchanged from 15.6 to 14.7. The diffusing capacity adjusted for alveolar volume is unchanged from 2.95 to 2.61. Impression: There is a mild obstructive abnormality with a normal FEV1. There is no significant improvement after inhaling a single dose of albuterol. The increase in residual volume to total lung volume ratio is consistent with hyperinflation from an obstructive abnormality. The diffusing capacity unadjusted for hemoglobin and carboxyhemoglobin is moderately decreased and normalizes when adjusted for alveolar volume. In comparison to previous pulmonary function testing on 09/18/2021 there has been a greater than anticipated time dependent increase in the functional residual capacity and residual volume with no significant change in the FVC, FEV1, total lung capacity or diffusing capacity. Clinical correlation is recommended.
== END 2024-05-15 10:26 | disposition home or self-care (01) ==
PROVIDERS: PCP Family Medicine; Visit Provider Physician Assistant
DX: R06.09 Other forms of dyspnea (principal); J44.9 Chronic obstructive pulmonary disease, unspecified; R91.8 Other nonspecific abnormal finding of lung field
CPT/HCPCS: 71250; 94060; 94726; 94729

== ENCOUNTER 2024-10-27 14:49 | Outpatient (CLI) | payer MEDICARE, SELFPAY ==
--- NOTE | ~2024-10-27 | CT_ITS ---
CT Scan of the Chest without Contrast: Clinical Indication: Pulmonary nodule Technique: Contiguous sections were acquired throughout the chest without intravenous contrast. Dose reduction technique was used on this scan by utilizing automated exposure control and iterative recon struction technique. The dose-length product (DLP) was 102.45 mGy-cm. COMPARISON: 05/15/2024 Findings: There is no evidence of any significant mediastinal, hilar or axillary lymphadenopathy. Extensive cor onary artery calcium cages are present. Calcified lymph nodes are present. There is no evidence of pleural or pericardial effusion. Advanced emphysema present. Stable subcentimeter nodules in the posterior aspect of the right upper l obe. Images through the upper abdomen reveal no abnormalities. Impression: Stable subcentimeter nodules in the posterior aspect of the right upper lobe. Advanced emphysema. Reviewed, dictated and finalized at [facility]. Impression: Stable subcentimeter nodules in the posterior aspect of the right upper lobe. Advanced emphysema.
== END 2024-10-27 14:50 | disposition home or self-care (01) ==
PROVIDERS: PCP Family Medicine; Visit Provider Physician Assistant
DX: R91.8 Other nonspecific abnormal finding of lung field (principal); J43.9 Emphysema, unspecified
CPT/HCPCS: 71250

== ENCOUNTER 2025-03-18 11:31 | Outpatient (CLI) | payer MEDICARE, SELFPAY ==
--- NOTE | ~2025-03-18 | XR_ITS ---
EXAMINATION: XR ankle RT min 3V, 03/18/2025 11:50 CDT HISTORY: M25.571 - Pain in right ankle and joints of right foot COMPARISON: No comparisons available. Findings: No acute fracture or malalignment. Moderate degenerative changes. Small calcaneal spur. Mild Achilles enthesopathy. Soft tissue vascular calcifications. Impression: No acute fracture or malalignment. Reviewed, dictated and finalized at location A. Impression: No acute fracture or malalignment.
== END 2025-03-18 11:32 | disposition home or self-care (01) ==
PROVIDERS: PCP Family Medicine; Visit Provider Family Medicine
DX: M25.571 Pain in right ankle and joints of right foot (principal)
CPT/HCPCS: 73610

== ENCOUNTER 2025-03-23 09:44 | Outpatient (CLI) | payer MEDICARE, SELFPAY ==
[2025-03-23 10:25] LABS: Alanine Aminotransferase 11 U/L (6-50); Albumin Level 4.1 g/dL (3.5-5.1); Alkaline Phosphatase 64 U/L (38-126); Aspartate Amino Transferase 22 U/L (17-59); Bilirubin,Total 0.9 mg/dL (0.2-1.3); Total Protein 7.6 g/dL (6.3-8.2)
== END 2025-03-23 09:45 | disposition home or self-care (01) ==
PROVIDERS: PCP Family Medicine; Visit Provider Family Medicine
DX: R10.9 Unspecified abdominal pain (principal)
CPT/HCPCS: 36415; 80076

== ENCOUNTER 2025-04-01 12:41 | Outpatient (CLI) | payer MEDICARE, SELFPAY ==
[2025-04-01 13:49] LABS: Anion Gap 6 mmol/L (4-12); Blood Urea Nitrogen 21 mg/dL (9-20); Calcium 8.7 mg/dL (8.4-10.2); Carbon Dioxide 29 mmol/L (22-30); Chloride 94 mmol/L (98-107); Estimated Glomerular Filt Rate 47; Glucose 96 mg/dL (65-110); Potassium 4.9 mmol/L (3.4-5.0); Sodium 129 mmol/L (137-145); Uric Acid 7.1 mg/dL (3.5-8.5)
== END 2025-04-01 12:42 | disposition home or self-care (01) ==
LOC: ANHLAB 12:42
PROVIDERS: PCP Family Medicine; Visit Provider Student in an Organized Health Care Education/Training Program
DX: R94.4 Abnormal results of kidney function studies (principal); M89.49 Other hypertrophic osteoarthropathy, multiple sites; M79.676 Pain in unspecified toe(s); M10.9 Gout, unspecified
CPT/HCPCS: 36415; 80048; 84550

== ENCOUNTER 2025-04-07 12:10 | Outpatient (CLI) | payer MEDICARE, SELFPAY ==
[2025-04-07 12:56] LABS: Anion Gap 2 mmol/L (4-12); Blood Urea Nitrogen 16 mg/dL (9-20); Calcium 8.7 mg/dL (8.4-10.2); Carbon Dioxide 33 mmol/L (22-30); Chloride 94 mmol/L (98-107); Estimated Glomerular Filt Rate 45; Glucose 109 mg/dL (65-110); Potassium 4.4 mmol/L (3.4-5.0); Sodium 129 mmol/L (137-145)
== END 2025-04-07 12:11 | disposition home or self-care (01) ==
PROVIDERS: PCP Family Medicine; Visit Provider Student in an Organized Health Care Education/Training Program
DX: E87.1 Hypo-osmolality and hyponatremia (principal)
CPT/HCPCS: 36415; 80048

== ENCOUNTER 2025-04-15 09:57 | Outpatient (CLI) | payer MEDICARE, SELFPAY ==
[2025-04-15 11:05] LABS: Anion Gap 4 mmol/L (4-12); Blood Urea Nitrogen 29 mg/dL (9-20); Calcium 8.5 mg/dL (8.4-10.2); Carbon Dioxide 31 mmol/L (22-30); Chloride 99 mmol/L (98-107); Estimated Glomerular Filt Rate 36; Glucose 95 mg/dL (65-110); Potassium 4.4 mmol/L (3.4-5.0); Sodium 134 mmol/L (137-145)
== END 2025-04-15 09:58 | disposition home or self-care (01) ==
PROVIDERS: PCP Family Medicine; Visit Provider Student in an Organized Health Care Education/Training Program
DX: E87.1 Hypo-osmolality and hyponatremia (principal)
CPT/HCPCS: 36415; 80048